=== PATIENT | female | born 1990 | race Hispanic/Latino ===

== ENCOUNTER 2017-04-25 19:45 | Emergency (ER) | payer BC ==
[2017-04-25 19:51] VITALS: TEMP 98; O2SAT 100
--- NOTE | 2017-04-25 20:18 | ED PDOC ---
HPI: Chest Pain Time Seen by Provider: 04/25/17 19:53 Chief Complaint (Nursing): Chest Pain Chief Complaint (Provider): Chest Pain History Per: Patient History/Exam Limitations: no limitations Onset/Duration Of Symptoms: Days (x1) Current Symptoms Are (Timing): Still Present Additional Complaint(s): Treasure Kowalski is a 26 year old female with previous medical history of supraventricular tachycardia status post ablation, who presents to the emergency department with a complaint of chest pain associated with palpitations and tiredness ongoing for 1 day. Denied further medical complaints. PMD: none provided Past Medical History Reviewed: Historical Data, Nursing Documentation, Vital Signs Vital Signs: Last Vital Signs Temp 98.0 F 04/25/17 19:48 Pulse 74 04/25/17 19:48 Resp 16 04/25/17 19:48 BP 130/76 04/25/17 19:48 Pulse Ox 100 04/25/17 20:25 - Medical History Other PMH: supraventricular tachycardia - Family History Family History: States: Unknown Family Hx - Home Medications Home Medications: Ambulatory Orders Medication Instructions Recorded Non-Formulary 1 ea .ROUTE Q6 #1 ea 04/25/17 Non-Formulary 1 ea .ROUTE Q6 #1 ea 04/25/17 - Allergies Allergies/Adverse Reactions: Allergies Allergy/AdvReac Type Severity Reaction Status Date / Time latex Allergy RASH Verified 04/25/17 19:48 Sulfa (Sulfonamide Allergy RASH Verified 04/25/17 19:48 Antibiotics) Review of Systems ROS Statement: Except As Marked, All Systems Reviewed And Found Negative Constitutional: Positive for: Malaise Cardiovascular: Positive for: Chest Pain, Palpitations Physical Exam - Reviewed Nursing Documentation Reviewed: Yes Vital Signs Reviewed: Yes - Physical Exam Appears: Positive for: Well, Non-toxic, No Acute Distress Head Exam: Positive for: ATRAUMATIC, NORMAL INSPECTION, NORMOCEPHALIC Skin: Positive for: Normal Color, Warm, DRY Eye Exam: Positive for: Normal appearance, EOMI, PERRL. Negative for: Nystagmus ENT: Positive for: Normal ENT Inspection Neck: Positive for: Normal, Painless ROM, Supple. Negative for: Decreased ROM Cardiovascular/Chest: Positive for: Regular Rate, Rhythm. Negative for: Chest Non Tender Respiratory: Positive for: Normal Breath Sounds, Accessory Muscle Use. Negative for: Decreased Breath Sounds, Crackles, Rales, Rhonchi, Wheezing, Respiratory Distress Gastrointestinal/Abdominal: Positive for: Normal Exam, Bowel Sounds, Soft. Negative for: Tenderness, Mass Back: Positive for: Normal Inspection. Negative for: L CVA Tenderness, R CVA Tenderness Extremity: Positive for: Normal ROM. Negative for: Tenderness, Pedal Edema, Calf Tenderness, Deformity Neurologic/Psych: Positive for: Alert, Oriented. Negative for: Motor/Sensory Deficits, Aphasia - Laboratory Results Result Diagrams: 04/25/17 21:15 04/25/17 20:23 - ECG O2 Sat by Pulse Oximetry: 100 (RA) Pulse Ox Interpretation: Normal Medical Decision Making Medical Decision Making: Initial Impression: Chest pain; palpitations Initial Plan: * EKG * CMP * Urine * CBC Time: 2013 --EKG: NSR at [address] changes. Scribe Attestation: Documented by Ada Villarreal, acting as a scribe for Tong Zeng MD. Provider Scribe Attestation: All medical record entries made by the Scribe were at my direction and personally dictated by me. I have reviewed the chart and agree that the record accurately reflects my personal performance of the history, physical exam, medical decision making, and the department course for this patient. I have also personally directed, reviewed, and agree with the discharge instructions and disposition. Disposition - Clinical Impression Clinical Impression: Palpitations - Patient ED Disposition Is Patient to be Admitted: No Counseled Patient/Family Regarding: Studies Performed, Diagnosis, Need For Followup, Rx Given - Disposition Referrals: Sonny Jimenez MD [Staff Provider] - Disposition: Routine/Home Disposition Time: 22:12 Condition: FAIR Prescriptions: Non-Formulary 1 ea .ROUTE Q6 #1 ea Non-Formulary 1 ea .ROUTE Q6 #1 ea Instructions: Palpitations (ED) Forms: [email or web address] (Venezuelan)
[2017-04-25 21:00] LABS: BASO % 0.3 % (0.0-2.0); EOS # 0.5 K/uL (0.0-0.7); EOS % 6.8 % (0.0-4.0); HEMATOCRIT 40.3 % (34.0-47.0); LYMPH % 29.8 % (20.0-40.0); MEAN CELL VOLUME 92.2 fl (81.0-99.0); MEAN CORPUSCULAR HGB CONC 32.5 g/dL (33.0-37.0); MEAN PLATELET VOLUME 8.9 fl (7.2-11.7); MONO # 0.5 K/uL (0.0-0.8); MONO % 7.7 % (0.0-10.0); NEUT # 3.7 K/uL (1.8-7.0); NEUT % 55.4 % (50.0-75.0); NRBC % 0.1 % (0.0-0.0); RED CELL DISTRIBUTION WIDTH 13.1 % (11.5-14.5); WHITE BLOOD COUNT 6.7 K/uL (4.8-10.8)
[2017-04-25 21:14] LABS: ALB/GLOB RATIO 1.8 (1.0-2.1); ALKALINE PHOSPHATASE 50 U/L (38-126); ALT/SGPT 35 U/L (9-52); AST/SGOT 37 U/L (14-36); BILIRUBIN,TOTAL 0.3 mg/dl (0.2-1.3); BLOOD UREA NITROGEN 19 mg/dl (7-17); CALCIUM 9.9 mg/dL (8.4-10.2); CARBON DIOXIDE 26 mmol/L (22-30); CHLORIDE 102 mmol/L (98-107); GFR AFRICAN-AMERICAN > 60; GLUCOSE,RANDOM 85 mg/dL (65-105); POTASSIUM 3.7 MMOL/L (3.6-5.0); SODIUM 143 mmol/l (132-148); TOTAL PROTEIN 7.3 G/DL (6.3-8.2)
[2017-04-25 22:35] VITALS: BP 112/56; PULSE 62; RESP 18
--- NOTE | 2017-04-26 21:37 | CARD ---
APPROVED REPORT EKG Measurement Heart [id number] <Conclusion> Normal sinus rhythm with sinus arrhythmia Possible Left atrial enlargement Borderline ECG
== END 2017-04-25 22:38 | disposition home or self-care (01) ==
LOC: H.ER 19:45
DX: R00.2 Palpitations (principal)

== ENCOUNTER 2017-05-08 14:05 | Emergency (ER) | payer BC ==
[2017-05-08 14:35] VITALS: BP 109/74; PULSE 68; RESP 18; TEMP 98.4; O2SAT 99
[2017-05-08] MEDS ORDERED: Sodium Chloride 0.9% 1,000 ML IV STA (14:57)
--- NOTE | 2017-05-08 15:22 | ED PDOC ---
HPI: Abdomen Time Seen by Provider: 05/08/17 14:52 Chief Complaint (Nursing): Abdominal Pain Chief Complaint (Provider): Abdominal Pain History Per: Patient History/Exam Limitations: no limitations Onset/Duration Of Symptoms: Days (x2) Current Symptoms Are (Timing): Still Present Additional Complaint(s): Treasure Kowalski is a 26 year old female with previous medical history of supraventricular tachycardia, who presents to the emergency department with a complaint of upper left abdomen pain associated with nausea, vomiting and diarrhea ongoing for 2 days. Denied fever, chills or bloody stools. PMD: none provided Past Medical History Reviewed: Historical Data, Nursing Documentation, Vital Signs Vital Signs: Last Vital Signs Temp 98.4 F 05/08/17 14:29 Pulse 68 05/08/17 14:29 Resp 18 05/08/17 14:29 BP 109/74 05/08/17 14:29 Pulse Ox 99 05/08/17 17:06 - Medical History PMH: Cardia Arrhythmia (SVT with ablation 2010) - Surgical History Surgical History: Tonsillectomy - Family History Family History: States: Unknown Family Hx - Social History Current smoker - smoking cessation education provided: No Alcohol: Occasional Drugs: Denies - Home Medications Home Medications: Ambulatory Orders Medication Instructions Recorded Non-Formulary 1 ea .ROUTE Q6 #1 ea 04/25/17 Non-Formulary 1 ea .ROUTE Q6 #1 ea 04/25/17 - Allergies Allergies/Adverse Reactions: Allergies Allergy/AdvReac Type Severity Reaction Status Date / Time latex Allergy RASH Verified 04/25/17 19:48 Sulfa (Sulfonamide Allergy RASH Verified 04/25/17 19:48 Antibiotics) Review of Systems ROS Statement: Except As Marked, All Systems Reviewed And Found Negative Constitutional: Negative for: Fever, Chills Gastrointestinal: Positive for: Nausea, Vomiting, Abdominal Pain (left upper), Diarrhea. Negative for: Hematochezia Physical Exam - Reviewed Nursing Documentation Reviewed: Yes Vital Signs Reviewed: Yes - Physical Exam Appears: Positive for: Well, Non-toxic, No Acute Distress Head Exam: Positive for: ATRAUMATIC, NORMAL INSPECTION, NORMOCEPHALIC Skin: Positive for: Normal Color Eye Exam: Positive for: Normal appearance ENT: Positive for: Normal ENT Inspection Neck: Positive for: Normal Cardiovascular/Chest: Positive for: Regular Rate, Rhythm, Chest Non Tender. Negative for: Murmur Respiratory: Positive for: Normal Breath Sounds, Accessory Muscle Use, Other ( clear bilaterally). Negative for: Decreased Breath Sounds, Respiratory Distress Gastrointestinal/Abdominal: Positive for: Soft, Tenderness (LUQ). Negative for : Normal Exam, Guarding, Rebound Back: Positive for: Normal Inspection. Negative for: L CVA Tenderness, R CVA Tenderness Extremity: Positive for: Normal ROM. Negative for: Tenderness, Pedal Edema, Calf Tenderness, Deformity Neurologic/Psych: Positive for: Alert, Oriented - Laboratory Results Result Diagrams: 05/08/17 15:23 05/08/17 15:23 - ECG O2 Sat by Pulse Oximetry: 99 (RA) Pulse Ox Interpretation: Normal Medical Decision Making Medical Decision Making: Initial Impression: Epigastric pain Initial Plan: * CMP * Urine Urine dipstick * CBC * NS 1,000ml IV per 100mls/hr * Ppecid 20mg IVP * Zofran inj 4mg IVP Scribe Attestation: Documented by Ada Villarreal, acting as a scribe for Tong Zeng MD. Provider Scribe Attestation: All medical record entries made by the Scribe were at my direction and personally dictated by me. I have reviewed the chart and agree that the record accurately reflects my personal performance of the history, physical exam, medical decision making, and the department course for this patient. I have also personally directed, reviewed, and agree with the discharge instructions and disposition. Disposition - Clinical Impression Clinical Impression: Abdominal pain - Patient ED Disposition Is Patient to be Admitted: Transfer of Care - Disposition Disposition: Transfer of Care Disposition Time: 17:07 Condition: FAIR Forms: [employer] (Libyan) Patient Signed Over To: Anand Merida III
[2017-05-08 15:27] LABS: BASO # 0.1 K/uL (0.0-0.2); BASO % 0.7 % (0.0-2.0); EOS # 1.9 K/uL (0.0-0.7); EOS % 24.2 % (0.0-4.0); HEMATOCRIT 38.6 % (34.0-47.0); LYMPH # 1.5 K/uL (1.0-4.3); LYMPH % 18.4 % (20.0-40.0); MEAN CELL VOLUME 90.8 fl (81.0-99.0); MEAN CORPUSCULAR HEMOGLOBIN 31.1 pg (27.0-31.0); MEAN CORPUSCULAR HGB CONC 34.3 g/dL (33.0-37.0); MEAN PLATELET VOLUME 8.4 fl (7.2-11.7); MONO # 0.6 K/uL (0.0-0.8); NEUT # 3.9 K/uL (1.8-7.0); NEUT % 48.7 % (50.0-75.0); NRBC % 0.1 % (0.0-0.0); PLATELET COUNT 203 K/uL (130-400); WHITE BLOOD COUNT 7.9 K/uL (4.8-10.8)
[2017-05-08 15:42] LABS: ALB/GLOB RATIO 1.7 (1.0-2.1); ALKALINE PHOSPHATASE 43 U/L (38-126); ALT/SGPT 32 U/L (9-52); AST/SGOT 37 U/L (14-36); BILIRUBIN,TOTAL 0.3 mg/dl (0.2-1.3); BLOOD UREA NITROGEN 17 mg/dl (7-17); CALCIUM 9.7 mg/dL (8.4-10.2); CARBON DIOXIDE 28 mmol/L (22-30); CHLORIDE 102 mmol/L (98-107); GFR AFRICAN-AMERICAN > 60; GLUCOSE,RANDOM 91 mg/dL (65-105); SODIUM 141 mmol/l (132-148); TOTAL PROTEIN 6.8 G/DL (6.3-8.2)
[2017-05-08 17:02] LABS: BASOPHIL 1 % (0-2); EOSINOPHIL 19 % (0-7); NEUTROPHIL 53 % (42-75); TOTAL CELLS COUNTED 100
[2017-05-08 17:03] LABS: LARGE PLATELETS PRESENT
--- NOTE | 2017-05-08 17:06 | ED PDOC ---
- Laboratory Results Result Diagrams: 05/08/17 15:23 05/08/17 15:23 - ECG O2 Sat by Pulse Oximetry: 99 (RA) Pulse Ox Interpretation: Normal Medical Decision Making Medical Decision Making: endorsed from Dr Zeng at 5pm pending CT abd pelv Accession No. : [id number] Patient Name / ID : SHABANA AREVALO / [id number] Exam Date : 05/08/2017 17:57:18 ( Approved ) Study Comment : Sex / Age : F / 26Y Creator : Nixon Fernández MD Dictator : Nixon Fernández MD Geodes[employer] Teacher : City Planning Aide : Nixon Fernández MD Approver2 : Report Date : 05/08/2017 18:41:20 My Comment : PROCEDURE: CT Abdomen and Pelvis with contrast HISTORY: Left-sided abdominal pain. By history, negative test (concurrent with this examination). COMPARISON: None. TECHNIQUE: Contrast dose: 90 cc Omnipaque 300 Radiation dose: Total exam DLP = 461.84 mGy-cm. This CT exam was performed using one or more of the following dose reduction techniques: Automated exposure control, adjustment of the mA and/or kV according to patient size, and/or use of iterative reconstruction technique. FINDINGS: LOWER THORAX: Unremarkable. LIVER: Unremarkable. No gross lesion or ductal dilatation. GALLBLADDER AND BILE DUCTS: Unremarkable. PANCREAS: Unremarkable. No gross lesion or ductal dilatation. SPLEEN: Unremarkable. ADRENALS: Unremarkable. No mass. KIDNEYS AND URETERS: Unremarkable. No hydronephrosis. No solid mass. VASCULATURE: Unremarkable. No aortic aneurysm. BOWEL: Dilated and fluid-filled loops of distal small bowel without obvious/apparent mechanical obstruction. Early/incomplete obstruction/ ileus should be considered. Diverticulosis without an acute inflammatory component or other associated pathologic process. APPENDIX: Normal appendix. PERITONEUM: Trace free fluid identified in the pelvis/cul de sac. No free air. LYMPH NODES: Unremarkable. No enlarged lymph nodes. BLADDER: Unremarkable. REPRODUCTIVE: Unremarkable. BONES: No acute fracture. OTHER FINDINGS: None. IMPRESSION: Dilated distal loops of small bowel primarily in the pelvis and right lower quadrant. Findings more likely reflect ileus than early/incomplete small bowel obstruction. Additional benign and/or incidental findings described above 710p re-eval states feeling better, hunger has returned. On palpation of abdomen nontender, no rebound, no guarding. States some of her symptoms have been ongoing for 2-3 weeks, which is inconsistent with an obstructive process. She was offered hospital observation to have surgery and GI evaluations but she states feeling better and wants to go home, she [place] 3 [place]. She was informed that early obstruction is not completely ruled-out and if obstruction progresses she would possibly need urgent surgery. Parents at bedside and understand findings, condition and risks. = She was offered [facility] followup in am and states she prefers to followup w virtual physician as she works in [employer] and understands is usefulness. Rx zofran for nausea, recommend GI referral and food diary. She understands will need further testing for definitive diagnosis. Disposition Counseled Patient/Family Regarding: Studies Performed, Diagnosis, Need For Followup, Rx Given - Clinical Impression Clinical Impression: Abdominal pain - POA Present On Arrival: None - Disposition Referrals: Ash Colon MD [Staff Provider] - Disposition: Routine/Home Disposition Time: 19:23 Condition: FAIR Additional Instructions: Followup with [facility] in the morning. They will call you for further instructions. RETURN TO ER OVERNIGHT FOR ANY PAIN, WORSE OR NEW SYMPTOMS. RECOMMEND LIQUID DIET TONIGHT, ADVANCE TOMORROW TOLERATED. Prescriptions: Dicyclomine [Dicyclomine HCl] 10 mg PO TID PRN #10 cap PRN Reason: Gi Distress Ondansetron [Zofran] 4 mg PO Q6H PRN #10 tab PRN Reason: Nausea/Vomiting Instructions: Acute Abdominal Pain (ED), Ileus (ED) Forms: [employer] (Paraguayan)
[2017-05-08] MEDS ORDERED: Sodium Chloride 0.9% 50 ML IV ONE (17:54)
[2017-05-08] MEDS ORDERED: Iohexol 300 100 ML IJ ONE (17:54)
--- NOTE | 2017-05-08 18:42 | CT ---
PROCEDURE: CT Abdomen and Pelvis with contrast HISTORY: Left-sided abdominal pain. By history, negative test (concurrent with this examination). COMPARISON: None. TECHNIQUE: Contrast dose: 90 cc Omnipaque 300 Radiation dose: Total exam DLP = 461.84 mGy-cm. This CT exam was performed using one or more of the following dose reduction techniques: Automated exposure control, adjustment of the mA and/or kV according to patient size, and/or use of iterative reconstruction technique. FINDINGS: LOWER THORAX: Unremarkable. LIVER: Unremarkable. No gross lesion or ductal dilatation. GALLBLADDER AND BILE DUCTS: Unremarkable. PANCREAS: Unremarkable. No gross lesion or ductal dilatation. SPLEEN: Unremarkable. ADRENALS: Unremarkable. No mass. KIDNEYS AND URETERS: Unremarkable. No hydronephrosis. No solid mass. VASCULATURE: Unremarkable. No aortic aneurysm. BOWEL: Dilated and fluid-filled loops of distal small bowel without obvious/apparent mechanical obstruction. Early/incomplete obstruction/ ileus should be considered. Diverticulosis without an acute inflammatory component or other associated pathologic process. APPENDIX: Normal appendix. PERITONEUM: Trace free fluid identified in the pelvis/cul de sac. No free air. LYMPH NODES: Unremarkable. No enlarged lymph nodes. BLADDER: Unremarkable. REPRODUCTIVE: Unremarkable. BONES: No acute fracture. OTHER FINDINGS: None. IMPRESSION: Dilated distal loops of small bowel primarily in the pelvis and right lower quadrant. Findings more likely reflect ileus than early/incomplete small bowel obstruction. Additional benign and/or incidental findings described above.
== END 2017-05-08 19:58 | disposition home or self-care (01) ==
LOC: H.ER 14:05
DX: R10.12 Left upper quadrant pain (principal)
CPT/HCPCS: 74177; 80053; 81025; 85025; 96361; 96374; 96375; 99282; J2405; J2765; J7040; Q9967

== ENCOUNTER 2018-04-17 17:14 | Emergency (ER) | payer BC ==
[2018-04-17 17:40] VITALS: BP 117/82; PULSE 66; RESP 16; TEMP 98.4; O2SAT 100
[2018-04-17] MEDS ORDERED: Tdap Vaccine 0.5 ml Vial (10-64 yrs) IM ONE ×2 (17:45→17:59)
--- NOTE | 2018-04-17 18:33 | ED PDOC ---
Upper Extremity Pain/Injury Time Seen by Provider: 04/17/18 17:40 Chief Complaint (Nursing): Bite Chief Complaint (Provider): Dog Bite History Per: Patient History/Exam Limitations: no limitations Onset/Duration Of Symptoms: Mins (prior to arrival) Current Symptoms Are (Timing): Still Present Additional Complaint(s): 27 year old female presents to the ED for evaluation of a dog bite to her left forearm just prior to arrival. Patient states the registry rn of the dog who bit her is an acquaintance, and as per a conversation with her, the dog's shots are up to date. She also has the registry rn's information. Otherwise denies numbness and tingling. Tetanus not up to date. PMD: none provided Past Medical History Reviewed: Historical Data, Nursing Documentation, Vital Signs Vital Signs: Last Vital Signs Temp 98.4 F 04/17/18 17:37 Pulse 66 04/17/18 17:37 Resp 16 04/17/18 17:37 BP 117/82 04/17/18 17:37 Pulse Ox 100 04/17/18 17:37 - Medical History PMH: Cardia Arrhythmia (SVT with ablation 2010) - Surgical History Surgical History: Tonsillectomy Other surgeries: CARDIAC ABLATION - Family History Family History: States: Unknown Family Hx - Social History Current smoker - smoking cessation education provided: No Alcohol: Social Drugs: Denies - Immunization History Hx Tetanus Toxoid Vaccination: No (will be updated this visit) - Home Medications Home Medications: Ambulatory Orders Medication Instructions Recorded Dicyclomine [Dicyclomine HCl] 10 mg PO DAILY 05/22/17 Amoxicillin/Clavulanate [Augmentin 1 tab PO BID #20 tab 04/17/18 875 MG-125 MG] Fluconazole [Diflucan] 150 mg PO ONCE #1 tab 04/17/18 Naproxen [Naprosyn] 500 mg PO BID PRN #14 tab 04/17/18 - Allergies Allergies/Adverse Reactions: Allergies Allergy/AdvReac Type Severity Reaction Status Date / Time latex Allergy RASH Verified 04/17/18 17:37 Sulfa (Sulfonamide Allergy RASH Verified 04/17/18 17:37 Antibiotics) Review of Systems ROS Statement: Except As Marked, All Systems Reviewed And Found Negative Skin: Positive for: Other (dog bite to left forearm) Neurological: Negative for: Numbness (or tingling) Physical Exam - Reviewed Nursing Documentation Reviewed: Yes Vital Signs Reviewed: Yes - Physical Exam Appears: Positive for: No Acute Distress Pulses-Radial (L): 2+ Pulses-Radial (R): 2+ Extremity: Positive for: Normal ROM (of left arm), Other (Left volar forearm in the middle: 1 crescent shape cm very superficial wound with surrounding ecchymosis but no active bleeding) - ECG O2 Sat by Pulse Oximetry: 100 (RA) Pulse Ox Interpretation: Normal Medical Decision Making Medical Decision Making: Time: 1744 Initial Impression: dog bite Initial Plan: --Tetanus booster --Motrin 600mg PO --Left forearm XR 1829 Wound heavily irrigated and dry sterile dressings placed with a volar splint. Patient advised to follow up with a clinic within 48 hours for a wound check. 1849 Forearm XR FINDINGS: BONES: No fracture or destructive lesion. JOINT SPACES: Unremarkable. OTHER FINDINGS: None. IMPRESSION: Unremarkable radiographs of the left forearm. - Scribe Attestation: Documented by Shanta Haile, acting as a scribe for Sage Garcia PA-C Provider Scribe Attestation: All medical record entries made by the Scribe were at my direction and personally dictated by me. I have reviewed the chart and agree that the record accurately reflects my personal performance of the history, physical exam, medical decision making, and the department course for this patient. I have also personally directed, reviewed, and agree with the discharge instructions and disposition. Disposition - Clinical Impression Clinical Impression: Dog bite - Patient ED Disposition Is Patient to be Admitted: No - Disposition Referrals: Prisca Velasco [Outside] Disposition: Routine/Home Disposition Time: 18:31 Condition: STABLE Additional Instructions: IRINA DONALD, thank you for letting us take care of you today. Your p rovider was Anshul Zavala MD and you were treated for DOG BITE. The emergency medical care you received today was directed at your acute symptoms. If you were prescribed any medication, please fill it and take as directed. It may take several days for your symptoms to resolve. Return to the Emergency Department if your symptoms worsen, do not improve, or if you have any other problems. Please contact your doctor or call one of the physicians/clinics you have been referred to that are listed on the Patient Visit Information form that is included in your discharge packet. Bring any paperwork you were given at discharge with you along with any medications you are taking to your follow up visit. Our treatment cannot replace ongoing medical care by a primary care provider outside of the emergency department. Thank you for allowing the [facility] team to be part of your care today. If you had an X-Ray or CT scan: A Radiologist will review the ED reading if any change in treatment is needed we will contact you. If you had a blood, urine, or wound culture: It will take several days for the results, if any change in treatment is needed we will contact you. If you had an STI test: It will take 48 hours for the results. Please call after 1 week if you have not heard back. Prescriptions: Amoxicillin/Clavulanate [Augmentin 875 MG-125 MG] 1 tab PO BID #20 tab Fluconazole [Diflucan] 150 mg PO ONCE #1 tab Naproxen [Naprosyn] 500 mg PO BID PRN #14 tab PRN Reason: Pain Instructions: Animal Bites (DC) Forms: [employer] ([place] Islander), [facility] ED School/Work Excuse Print Language: KYRGYZ
--- NOTE | 2018-04-17 18:52 | RAD ---
Date of service: 04/17/2018 PROCEDURE: Radiographs of the Left Forearm HISTORY: dog bite COMPARISON: None available. TECHNIQUE: Frontal and lateral views obtained. FINDINGS: BONES: No fracture or destructive lesion. JOINT SPACES: Unremarkable. OTHER FINDINGS: None. IMPRESSION: Unremarkable radiographs of the left forearm.
== END 2018-04-17 18:52 | disposition home or self-care (01) ==
LOC: H.ER 17:14
DX: S51.812A Laceration without foreign body of left forearm, initial encounter (principal); W54.0XXA Bitten by dog, initial encounter; Y92.89 Other specified places as the place of occurrence of the external cause